=== PATIENT | male | born 1960 | race Caucasian/White ===

== ENCOUNTER 2017-09-13 03:13 | Inpatient (IN) | payer SELFPAY ==
[2017-09-13] VITALS (9 sets, daily range): BP systolic 136–223; BP diastolic 85–114; PULSE 58–86; RESP 16–18; TEMP 97.6–97.7; O2SAT 96–99
[~2017-09-13] VITALS: Ht 180.3 cm; Wt 88.2 kg
[~2017-09-13 03:13] MED LIST: ASPI81TA82 PO; CORE6.25 PO; LIPI80TA16 PO; LISI-360 PO; PLAV75TA PO
[2017-09-13] MEDS ORDERED: REQU5TAB PO (03:23)
[2017-09-13] MEDS ORDERED: LISI10TA3 PO (03:23)
[2017-09-13] MEDS ORDERED: KETOROLAC TROMETHAMINE 30 MG/ML (IVP) VIAL IV PUSH ONE (03:30)
[2017-09-13] MEDS ORDERED: SODIUM CHLORIDE 0.9% FLUSH 10 ML FLUSH IVF PRN (03:30)
[2017-09-13] MEDS ORDERED: CYCLOBENZAPRINE HCL 10 MG TAB PO ONE (03:30)
[2017-09-13 03:40] LABS: AUTOMATED NEUTROPHIL # 5.6 TH/MM3 (1.8-7.7); BASOPHIL # 0.1 TH/MM3 (0-0.2); BASOPHIL % 1.2 % (0.0-2.0); EOSINOPHIL # 0.3 TH/MM3 (0-0.4); EOSINOPHIL % 2.4 % (0.0-4.0); HEMATOCRIT 42.3 % (39.0-51.0); HEMOGLOBIN 14.7 GM/DL (13.0-17.0); LYMPHOCYTE # 4.3 TH/MM3 (1.0-4.8); MEAN CELL VOLUME 100.1 FL (80.0-100.0); MEAN CORPUSCULAR HEMOGLOBIN 34.7 PG (27.0-34.0); MEAN CORPUSCULAR HGB CONC 34.7 % (32.0-36.0); MEAN PLATELET VOLUME 6.9 FL (7.0-11.0); MONO % 7.6 % (0.0-8.0); MONOCYTE # 0.8 TH/MM3 (0-0.9); NEUT % 49.8 % (16.0-70.0); PLATELET COUNT 280 TH/MM3 (150-450); RED BLOOD COUNT 4.23 MIL/MM3 (4.50-5.90); RED CELL DISTRIBUTION WIDTH 13.3 % (11.6-17.2); WHITE BLOOD COUNT 11.1 TH/MM3 (4.0-11.0)
[2017-09-13 04:00] LABS: ALBUMIN 3.5 GM/DL (3.4-5.0); ALT (GPT) 71 U/L (12-78); AST (GOT) 41 U/L (15-37); BICARBONATE 25.7 MEQ/L (21.0-32.0); BLOOD UREA NITROGEN 9 MG/DL (7-18); CALCIUM 8.7 MG/DL (8.5-10.1); CHLORIDE 102 MEQ/L (98-107); CREATININE 1.01 MG/DL (0.60-1.30); GLOMERULAR FILTRATION RATE 76 ML/MIN (>89); GLUCOSE,RANDOM 115 MG/DL (74-106); MAGNESIUM 2.1 MG/DL (1.5-2.5); SODIUM (NA) 140 MEQ/L (136-145)
[2017-09-13 04:04] LABS: ALKALINE PHOSPHATASE 84 U/L (45-117); TOTAL BILIRUBIN ADULT 0.3 MG/DL (0.2-1.0); TROPONIN I LESS THAN 0.02 NG/ML (0.02-0.05)
[2017-09-13 04:08] LABS: PROTHROMBIN TIME - PATIENT 10.1 SEC (9.8-11.6)
[2017-09-13 04:15] LABS: D-DIMER 0.39 MG/L FEU (0.00-0.50)
--- NOTE | 2017-09-13 04:36 | RADRPT ---
EXAM DATE/TIME: 09/13/2017 04:07 [facility] COMPARISON: CHEST SINGLE AP, August 03, 2013, 0:55. INDICATIONS : Right chest pain. MEDICAL HISTORY : None. SURGICAL HISTORY : None. ENCOUNTER: Initial ACUITY: 1 day PAIN SCORE: 9/10 LOCATION: Bilateral chest FINDINGS: A single view of the chest demonstrates the lungs to be symmetrically aerated without evidence of mas s, infiltrate or effusion. The cardiomediastinal contours are unremarkable. Osseous structures are intact. CONCLUSION: The lungs are clear. Prem Adorno MD on September 13, 2017 at 4:34 Board Certified Radiologist. This report was verified electronically.
[2017-09-13] MEDS ORDERED: traMADol HCL 50 MG TAB PO ONE (05:45)
[2017-09-13] MEDS ORDERED: DIAZEPAM 5 MG TAB PO ONE (06:00)
--- NOTE | 2017-09-13 07:00 | PD ---
HPI . Chest pain Chief Complaint: Chest Pain Time Seen by Provider: 03:16 Travel History International Travel<30 days: No Contact w/Intl Traveler<30days: No Traveled to known affect area: No History of Present Illness HPI 57-year-old male complains of having right-sided chest pain radiating to right arm worse with movement, noted over the past day and 1/2-2 days. Patient also has some worsening with deep breath. Patient notes having lifting his father always over 200 pounds from a seated position repeatedly over the past several days. Patient denies any shortness of breath, fever chills sweats, cough, recent leg pain or swelling, no recent confining travel. PFSH Past Medical History Narrative Medical Past medical history reviewed Blood Disorders: No Cancer: No Cardiovascular Problems: No Chest Pain: Yes Endocrine: No Genitourinary: No Hypertension: Yes Immune Disorder: No Medical other: Yes (RESTLESS LEG SYNDROME) Musculoskeletal: Yes Neurologic: No Psychiatric: No Reproductive: No Respiratory: No Tetanus Vaccination: < 5 Years Influenza Vaccination: No Past Surgical History Abdominal Surgery: Yes (COLOSTOMY AND REVERSAL) Cardiac Surgery: No Coronary Stent: Yes Ear Surgery: No Endocrine Surgery: No Eye Surgery: No Genitourinary Surgery: No Gynecologic Surgery: No Neurologic Surgery: Yes (LUMBAR Sx X3) Oral Surgery: No Thoracic Surgery: No Social History Alcohol Use: Yes (OCC) Tobacco Use: Yes Substance Use: No Allergies-Medications (Allergen,Severity, Reaction): Coded Allergies: No Known Allergies (Verified Allergy, Severe, 09/13/17) Uncoded Allergies: NKA (Allergy, Unknown, 03/04/03) Reported Meds & Prescriptions Reported Meds & Active Scripts Active Reported Requip (Ropinirole) 5 Mg Tab 5 Mg PO HS Lisinopril 10 Mg Tab 10 Mg PO DAILY Narrative Medication Allergies and medications reviewed Review of Systems Except as stated in HPI: all other systems reviewed are Neg General / Constitutional: No: Fever Eyes: No: Visual changes HENT: No: Headaches Cardiovascular: Positive: Chest Pain or Discomfort, No: Palpitations, Irregular Rhythm, Tachycardia, Diaphoresis, Varicosities, Edema, Varicosities, Claudication Respiratory: Positive: Pleuritic Pain, No: Cough, Shortness of Breath, Wheezing , Sneezing, Orthopnea, Hemoptysis, Night Sweats Gastrointestinal: No: Abdominal Pain Genitourinary: No: Dysuria Musculoskeletal: No: Pain Skin: No Rash Neurologic: No: Weakness Psychiatric: No: Depression Endocrine: No: Polydipsia Hematologic/Lymphatic: No: Easy Bruising Physical Exam Narrative GENERAL: Awake and alert oriented 3 no acute distress vital signs afebrile normal stable SKIN: Warm and dry. Color is normal no diaphoresis cyanosis or pallor HEAD: Atraumatic. Normocephalic. EYES: Pupils equal and round. No scleral icterus. No injection or drainage. ENT: No nasal bleeding or discharge. Mucous membranes pink and moist. NECK: Trachea midline. No JVD. Supple nontender full range of motion CARDIOVASCULAR: Regular rate and rhythm. S1-S2 no murmurs rubs gallops RESPIRATORY: No accessory muscle use. Clear to auscultation. Breath sounds equal bilaterally. Chest wall exquisitely tender right anterior pectoralis area as well as anterior aspect of patient's shoulder along long head of biceps which elicits patient's pain GASTROINTESTINAL: Abdomen soft, non-tender, nondistended. Hepatic and splenic margins not palpable. MUSCULOSKELETAL: Extremities without clubbing, cyanosis, or edema. No obvious deformities. Tenderness of long head of biceps tendon on right side as noted above NEUROLOGICAL: Awake and alert. No obvious deficits PSYCHIATRIC: Appropriate mood and affect; insight and judgment normal. Data Data Last Documented VS Vital Signs Date Time Temp Pulse Resp B/P (MAP) Pulse Ox O2 Delivery O2 Flow Rate FiO2 09/13/17 05:00 70 16 162/91 (114) 98 Nasal Cannula 2.00 09/13/17 03:15 97.6 Orders Orders Electrocardiogram (09/13/17 03:16) B-Type Natriuretic Peptide (09/13/17 03:16) Ckmb (Isoenzyme) Profile (09/13/17 03:16) Complete Blood Count With Diff (09/13/17 03:16) Comprehensive Metabolic Panel (09/13/17 03:16) D-Dimer (09/13/17 03:16) Magnesium (Mg) (09/13/17 03:16) Prothrombin Time / Inr (Pt) (09/13/17 03:16) Act Partial Throm Time (Ptt) (09/13/17 03:16) Troponin I (09/13/17 03:16) Chest, Single Ap (09/13/17 03:16) Ecg Monitoring (09/13/17 03:16) Bilateral Bp Monitoring (09/13/17 03:16) Iv Access Insert/Monitor (09/13/17 03:16) Oximetry (09/13/17 03:16) Oxygen Administration (09/13/17 03:16) Sodium Chloride 0.9% Flush (Ns Flush) (09/13/17 03:30) Ketorolac Inj (Toradol Inj) (09/13/17 03:30) Cyclobenzaprine (Flexeril) (09/13/17 03:30) Tramadol (Ultram) (09/13/17 05:45) Troponin I (09/13/17 05:53) Diazepam (Valium) (09/13/17 06:00) Ct Thorax/ Chest W Iv Contrast (09/13/17 ) Westergren Sedimentation Rate (09/13/17 06:40) Nitroglycerin 2% Oint (Nitroglycerin 2% (09/13/17 07:15) Labs Laboratory Tests Test 09/13/17 03:25 09/13/17 06:00 White Blood Count 11.1 TH/MM3 Red Blood Count 4.23 MIL/MM3 Hemoglobin 14.7 GM/DL Hematocrit 42.3 % Mean Corpuscular Volume 100.1 FL Mean Corpuscular Hemoglobin 34.7 PG Mean Corpuscular Hemoglobin Concent 34.7 % Red Cell Distribution Width 13.3 % Platelet Count 280 TH/MM3 Mean Platelet Volume 6.9 FL Neutrophils (%) (Auto) 49.8 % Lymphocytes (%) (Auto) 39.0 % Monocytes (%) (Auto) 7.6 % Eosinophils (%) (Auto) 2.4 % Basophils (%) (Auto) 1.2 % Neutrophils # (Auto) 5.6 TH/MM3 Lymphocytes # (Auto) 4.3 TH/MM3 Monocytes # (Auto) 0.8 TH/MM3 Eosinophils # (Auto) 0.3 TH/MM3 Basophils # (Auto) 0.1 TH/MM3 CBC Comment DIFF FINAL Differential Comment Prothrombin Time 10.1 SEC Prothromb Time International Ratio 1.0 RATIO Activated Partial Thromboplast Time 20.6 SEC D-Dimer Quantitative (PE/DVT) 0.39 MG/L FEU Blood Urea Nitrogen 9 MG/DL Creatinine 1.01 MG/DL Random Glucose 115 MG/DL Total Protein 7.0 GM/DL Albumin 3.5 GM/DL Calcium Level 8.7 MG/DL Magnesium Level 2.1 MG/DL Alkaline Phosphatase 84 U/L Aspartate Amino Transf (AST/SGOT) 41 U/L Alanine Aminotransferase (ALT/SGPT) 71 U/L Total Bilirubin 0.3 MG/DL Sodium Level 140 MEQ/L Potassium Level 3.7 MEQ/L Chloride Level 102 MEQ/L Carbon Dioxide Level 25.7 MEQ/L Anion Gap 12 MEQ/L Estimat Glomerular Filtration Rate 76 ML/MIN Total Creatine Kinase 72 U/L Troponin I LESS THAN 0.02 NG/ML 0.05 NG/ML B-Type Natriuretic Peptide 5 PG/ML MDM Medical Decision Making Medical Screen Exam Complete: Yes Emergency Medical Condition: Yes Medical Record Reviewed: Yes Differential Diagnosis Chest pain, chest wall pain, biceps tendinitis, pectoralis spasm Narrative Course EKG normal sinus rhythm at 76 bpm, poor tracing, possible mild ST depressions noted in lead V3 and V4 versus artifact Chest x-ray negative Laboratory examinations including troponin negative. Sedimentation rate pending. Patient notes significant worsening of pain right anterior chest, reproducible by palpation. Denies radiation. Patient screaming in pain despite medications given earlier. CT chest with IV contrast ordered pending performing and result Case signed out to oncoming ED attending Dr. Carbajal pending the above Diagnosis Primary Impression: Chest pain Qualified Codes: R07.1 - Chest pain on breathing Neil Mak MD Sep 13, 2017 07:00
--- NOTE | 2017-09-13 07:09 | PD ---
Data Data Last Documented VS Vital Signs Date Time Temp Pulse Resp B/P (MAP) Pulse Ox O2 Delivery O2 Flow Rate FiO2 09/13/17 11:08 67 16 136/92 (107) 99 Nasal Cannula 2.00 09/13/17 03:15 97.6 Orders Orders Electrocardiogram (09/13/17 03:16) B-Type Natriuretic Peptide (09/13/17 03:16) Ckmb (Isoenzyme) Profile (09/13/17 03:16) Complete Blood Count With Diff (09/13/17 03:16) Comprehensive Metabolic Panel (09/13/17 03:16) D-Dimer (09/13/17 03:16) Magnesium (Mg) (09/13/17 03:16) Prothrombin Time / Inr (Pt) (09/13/17 03:16) Act Partial Throm Time (Ptt) (09/13/17 03:16) Troponin I (09/13/17 03:16) Chest, Single Ap (09/13/17 03:16) Ecg Monitoring (09/13/17 03:16) Bilateral Bp Monitoring (09/13/17 03:16) Iv Access Insert/Monitor (09/13/17 03:16) Oximetry (09/13/17 03:16) Oxygen Administration (09/13/17 03:16) Sodium Chloride 0.9% Flush (Ns Flush) (09/13/17 03:30) Ketorolac Inj (Toradol Inj) (09/13/17 03:30) Cyclobenzaprine (Flexeril) (09/13/17 03:30) Tramadol (Ultram) (09/13/17 05:45) Troponin I (09/13/17 05:53) Diazepam (Valium) (09/13/17 06:00) Ct Thorax/ Chest W Iv Contrast (09/13/17 ) Westergren Sedimentation Rate (09/13/17 06:40) Nitroglycerin 2% Oint (Nitroglycerin 2% (09/13/17 07:15) Hydromorphone Pf Inj (Dilaudid Pf Inj) (09/13/17 07:45) Iohexol 350 Inj (Omnipaque 350 Inj) (09/13/17 08:22) Troponin I (09/13/17 09:06) Heparin Inj (Heparin Inj) (09/13/17 10:15) Heparin Inj (Heparin Inj) (09/13/17 16:15) Heparin Inj (Heparin Inj) (09/13/17 16:15) Heparin-D5w 25,000 U/250 Ml (Heparin-D5w (09/13/17 10:30) Aspirin Chew (Aspirin Chew) (09/13/17 10:15) Consult Cardiology (09/13/17 ) Electrocardiogram (09/13/17 09:48) (Hub Use Only)Inp Phy Cons/Ref (09/13/17 ) Admit Order (Ed Use Only) (09/13/17 ) Labs Laboratory Tests Test 09/13/17 03:25 09/13/17 06:00 09/13/17 09:10 White Blood Count 11.1 TH/MM3 Red Blood Count 4.23 MIL/MM3 Hemoglobin 14.7 GM/DL Hematocrit 42.3 % Mean Corpuscular Volume 100.1 FL Mean Corpuscular Hemoglobin 34.7 PG Mean Corpuscular Hemoglobin Concent 34.7 % Red Cell Distribution Width 13.3 % Platelet Count 280 TH/MM3 Mean Platelet Volume 6.9 FL Neutrophils (%) (Auto) 49.8 % Lymphocytes (%) (Auto) 39.0 % Monocytes (%) (Auto) 7.6 % Eosinophils (%) (Auto) 2.4 % Basophils (%) (Auto) 1.2 % Neutrophils # (Auto) 5.6 TH/MM3 Lymphocytes # (Auto) 4.3 TH/MM3 Monocytes # (Auto) 0.8 TH/MM3 Eosinophils # (Auto) 0.3 TH/MM3 Basophils # (Auto) 0.1 TH/MM3 CBC Comment DIFF FINAL Differential Comment Erythrocyte Sedimentation Rate 7 mm/hr Prothrombin Time 10.1 SEC Prothromb Time International Ratio 1.0 RATIO Activated Partial Thromboplast Time 20.6 SEC D-Dimer Quantitative (PE/DVT) 0.39 MG/L FEU Blood Urea Nitrogen 9 MG/DL Creatinine 1.01 MG/DL Random Glucose 115 MG/DL Total Protein 7.0 GM/DL Albumin 3.5 GM/DL Calcium Level 8.7 MG/DL Magnesium Level 2.1 MG/DL Alkaline Phosphatase 84 U/L Aspartate Amino Transf (AST/SGOT) 41 U/L Alanine Aminotransferase (ALT/SGPT) 71 U/L Total Bilirubin 0.3 MG/DL Sodium Level 140 MEQ/L Potassium Level 3.7 MEQ/L Chloride Level 102 MEQ/L Carbon Dioxide Level 25.7 MEQ/L Anion Gap 12 MEQ/L Estimat Glomerular Filtration Rate 76 ML/MIN Total Creatine Kinase 72 U/L Troponin I LESS THAN 0.02 NG/ML 0.05 NG/ML 0.95 NG/ML B-Type Natriuretic Peptide 5 PG/ML MDM Supervised Visit with ROBSON: No Narrative Course Patient CARE assume from Dr. Dwyer at 0700, this is a patient who presents with colicky right sided chest pain radiating down his right arm. He is a smoker high blood pressure and high cholesterol. He called EMS last night because he thought he was having a heart attack. He received Toradol and Valium prior to the start of my shift, nitroglycerin as well, notably hypertensive but equal in both arms and leg, 217/114 the left upper extremity 223/105 in the right upper extremity 219/102 in the right lower extremity 218/111 the left lower extremity. My exam the patient still looks very uncomfortable, a milligram of Dilaudid was ordered, he is more comfortable after that, we are waiting the results of his CTA aorta to rule out dissection. Disposition to follow. Patient's CT of the chest negative for dissection, he is much more comfortable after Dilaudid. Patient with fairly atypical symptoms including right-sided chest pain radiating down his right arm however his troponin is trended up to 0.95 in the emergency department diagnostic for NSTEMI. Patient low risk for anticoagulation, will be heparinized, has Nitropaste on oxygen and has been given aspirin. Patient discussed with Dr. Barnard who agrees perhaps admission. Awaiting perhaps to call back and will discuss with Dr. Garcia Diagnosis Primary Impression: NSTEMI (non-ST elevated myocardial infarction) Admitting Information Admitting Physician Requests: Admit Condition: Stable Peterson Carbajal MD Sep 13, 2017 07:09
[2017-09-13] MEDS ORDERED: NITROGLYCERIN 2% OINT 1 GM PACKET TOPICAL ONE (07:15)
[2017-09-13] MEDS ORDERED: HYDROmorphone HCL PF 2 MG/ML VIAL IV PUSH ONE (07:45)
[2017-09-13] MEDS ORDERED: IOHEXOL 350 MG/ML 10 ML VIAL (for RAD DIAG) IVCONTRAST ONE (08:22)
--- NOTE | 2017-09-13 09:03 | RADRPT ---
EXAM DATE/TIME: 09/13/2017 08:18 [facility] COMPARISON: No previous studies available for comparison. INDICATIONS : Right anterior chest pain IV CONTRAST: 65 cc Omnipaque 350 (iohexol) IV RADIATION DOSE: 13.89 CTDIvol (mGy) MEDICAL HISTORY : Hypertension. SURGICAL HISTORY : Lumbar fusion ENCOUNTER: Initial ACUITY: 1 day PAIN SCALE: 3/10 LOCATION: Right anterior Chest TECHNIQUE: Volumetric scanning of the chest was performed. Using automated exposure control and adjustment of t he mA and/or kV according to patient size, radiation dose was kept as low as reasonably achievable to obtain optimal diagnostic quality images. DICOM format image data is available electronically for review and comparison. Follow-up recommendations for detected pulmonary nodules are based at a minimum on nodule size and pa tient risk factors according to Fleischner Society Guidelines. FINDINGS: Mild to moderate emphysematous changes in both lungs worse in the apices and minimal pleural thickeni ng along the left. There is no axillary adenopathy. There is no mediastinal adenopathy. There is mild dilatation of th e ascending aorta to 3.6 hemorrhage. Descending aorta measures 2.5 cm. There is no dissection. Mod erate LAD calcifications are noted. There is no pericardial effusion Moderate fatty replacement to the liver. CONCLUSION: No dissection. Moderate coronary calcifications without pericardial effusion Moderate fatty replacement in the liver Joe Pedro MD FACR on September 13, 2017 at 8:59 Board Certified Radiologist. This report was verified electronically.
[2017-09-13] MEDS ORDERED: HEPARIN SODIUM - IV 10,000 UNITS/10 ML VIAL IV ONE ×2 (10:15→16:00)
[2017-09-13] MEDS ORDERED: ASPIRIN 81 MG CHEW TAB CHEW ONE (10:15)
[2017-09-13] MEDS ORDERED: HEPARIN-D5W 25,000 U/250 ML 250 ML IV PRN (10:30)
[2017-09-13] MEDS ORDERED: ACETAMINOPHEN 500 MG CPLT PO PRN (12:15)
[2017-09-13] MEDS ORDERED: SODIUM CHLORIDE 0.9% FLUSH 10 ML FLUSH IV FLUSH PRN (12:15)
[2017-09-13] MEDS ORDERED: NITROGLYCERIN 0.4 MG SL 25 TABS/BTL SL PRN (12:15)
--- NOTE | 2017-09-13 12:52 | HHI.HP ---
[facility] Service [facility] Primary Care Physician Unknown Admission Diagnosis NSTEMI Diagnoses: (1) NSTEMI (non-ST elevated myocardial infarction) Chief Complaint: Chest pain Travel History International Travel<30 Days: No Contact w/Intl Traveler <30 Da: No Traveled to Known Affected Are: No History of Present Illness 57-year-old man with a history of hypertension, tobacco abuse presented to the ED for evaluation of acute onset of substernal chest pain rated 3/10 in intensity which workup patient around 2 AM and radiated to his right arm. Patient reported numbness to his right arm however denies any diaphoresis, heart palpitation or dizziness. States, he took 2 baby aspirin. On initial presentation, cardiac enzyme was unremarkable however the third set was critically elevated. CT chest ruled out dissection. Patient denies any GI bleed and has no other symptoms. Review of Systems Except as stated in HPI: all other systems reviewed are Neg Past Family Social History Past Medical History Hypertension: Yes Medical other: Yes (RESTLESS LEG SYNDROME) Past Surgical History Abdominal Surgery: Yes (COLOSTOMY AND REVERSAL) Coronary Stent: Yes Neurologic Surgery: Yes (LUMBAR Sx X3) Knees surgery Reported Medications Requip (Ropinirole) 5 Mg Tab 5 Mg PO HS Lisinopril 10 Mg Tab 10 Mg PO DAILY Allergies: Coded Allergies: No Known Allergies (Verified Allergy, Severe, 09/13/17) Uncoded Allergies: NKA (Allergy, Unknown, 03/04/03) Family History Family history positive for heart disease Social History Alcohol Use: Yes (OCC) Tobacco Use: Yes Substance Use: No Physical Exam Vital Signs Vital Signs Date Time Temp Pulse Resp B/P (MAP) Pulse Ox O2 Delivery O2 Flow Rate FiO2 09/13/17 11:08 67 16 136/92 (107) 99 Nasal Cannula 2.00 09/13/17 08:15 84 16 170/85 (113) 99 Nasal Cannula 2.00 09/13/17 07:15 86 16 217/114 (148) 99 Nasal Cannula 2.00 223/105 (144) 219/102 (141) 218/111 (146) 09/13/17 05:00 70 16 162/91 (114) 98 Nasal Cannula 2.00 09/13/17 03:18 100 Nasal Cannula 2.00 09/13/17 03:15 97.6 70 18 136/90 (105) 98 Physical Exam GENERAL: This is a well-nourished, well-developed patient, in no apparent distress. SKIN: No rashes, ecchymoses or lesions. Cool and dry. HEAD: Atraumatic. Normocephalic. No temporal or scalp tenderness. EYES: Pupils equal round and reactive. Extraocular motions intact. No scleral icterus. No injection or drainage. ENT: Nose without bleeding, purulent drainage or septal hematoma. Throat without erythema, tonsillar hypertrophy or exudate. Uvula midline. Airway patent. NECK: Trachea midline. No JVD or lymphadenopathy. Supple, nontender, no meningeal signs. CARDIOVASCULAR: Regular rate and rhythm without murmurs, gallops, or rubs. RESPIRATORY: Clear to auscultation. Breath sounds equal bilaterally. No wheezes , rales, or rhonchi. GASTROINTESTINAL: Abdomen soft, non-tender, nondistended. No hepato-splenomegaly , or palpable masses. No guarding. MUSCULOSKELETAL: Extremities without clubbing, cyanosis, or edema. No joint tenderness, effusion, or edema noted. No calf tenderness. Negative Homans sign bilaterally. NEUROLOGICAL: Awake and alert. Cranial nerves II through XII intact. Motor and sensory grossly within normal limits. Five out of 5 muscle strength in all muscle groups. Normal speech. Laboratory Laboratory Tests Test 09/13/17 03:25 09/13/17 06:00 09/13/17 09:10 White Blood Count 11.1 Red Blood Count 4.23 Hemoglobin 14.7 Hematocrit 42.3 Mean Corpuscular Volume 100.1 Mean Corpuscular Hemoglobin 34.7 Mean Corpuscular Hemoglobin Concent 34.7 Red Cell Distribution Width 13.3 Platelet Count 280 Mean Platelet Volume 6.9 Neutrophils (%) (Auto) 49.8 Lymphocytes (%) (Auto) 39.0 Monocytes (%) (Auto) 7.6 Eosinophils (%) (Auto) 2.4 Basophils (%) (Auto) 1.2 Neutrophils # (Auto) 5.6 Lymphocytes # (Auto) 4.3 Monocytes # (Auto) 0.8 Eosinophils # (Auto) 0.3 Basophils # (Auto) 0.1 CBC Comment DIFF FINAL Differential Comment Erythrocyte Sedimentation Rate 7 Prothrombin Time 10.1 Prothromb Time International Ratio 1.0 Activated Partial Thromboplast Time 20.6 D-Dimer Quantitative (PE/DVT) 0.39 Blood Urea Nitrogen 9 Creatinine 1.01 Random Glucose 115 Total Protein 7.0 Albumin 3.5 Calcium Level 8.7 Magnesium Level 2.1 Alkaline Phosphatase 84 Aspartate Amino Transf (AST/SGOT) 41 Alanine Aminotransferase (ALT/SGPT) 71 Total Bilirubin 0.3 Sodium Level 140 Potassium Level 3.7 Chloride Level 102 Carbon Dioxide Level 25.7 Anion Gap 12 Estimat Glomerular Filtration Rate 76 Total Creatine Kinase 72 Troponin I LESS THAN 0.02 0.05 0.95 B-Type Natriuretic Peptide 5 Result Diagram: 09/13/17 0325 09/13/17 0325 Imaging Last Impressions Chest X-Ray 09/13/17 0316 Signed Impressions: Service Date/Time: Wednesday, September 13, 2017 04:07 - CONCLUSION: The lungs are clear. Prem Adorno MD Chest CT 09/13/17 0000 Signed Impressions: Service Date/Time: Wednesday, September 13, 2017 08:18 - CONCLUSION: No dissection. Moderate coronary calcifications without pericardial effusion Moderate fatty replacement in the liver Joe Pedro MD FACR Septic Shock Reassessment Septic shock perfusion: reassessment completed Caprini VTE Risk Assessment Caprini VTE Risk Assessment: No/Low Risk (score <= 1) Caprini Risk Assessment Model Point Value = 1 Point Value = 2 Point Value = 3 Point Value = 5 Age 41-60 Minor surgery BMI > 25 kg/m2 Swollen legs Varicose veins or History of unexplained or recurrent spontaneous Oral contraceptives or hormone replacement Sepsis (< 1 month) Serious lung disease, including pneumonia (< 1 month) Abnormal pulmonary function Acute myocardial infarction Congestive heart failure (< 1 month) History of inflammatory bowel disease Medical patient at bed rest Age 61-74 Arthroscopic surgery Major open surgery (> 45 min) Laparoscopic surgery (> 45 min) Malignancy Confined to bed (> 72 hours) Immobilizing plaster cast Central venous access Age >= 75 History of VTE Family history of VTE Factor V Leiden Prothrombin [id number] Lupus anticoagulant Anticardiolipin antibodies Elevated serum homocysteine Heparin-induced thrombocytopenia Other congenital or acquired thrombophilia Stroke (< 1 month) Elective arthroplasty Hip, pelvis, or leg fracture Acute spinal cord injury (< 1 month) Prophylaxis Regimen Total Risk Factor Score Risk Level Prophylaxis Regimen 0-1 Low Early ambulation 2 Moderate Order ONE of the following: *Sequential Compression Device (SCD) *Heparin 5000 units SQ BID 3-4 Higher Order ONE of the following medications: *Heparin 5000 units SQ TID *Enoxaparin/Lovenox 40 mg SQ daily (WT < 150 kg, CrCl > 30 mL/min) *Enoxaparin/Lovenox 30 mg SQ daily (WT < 150 kg, CrCl > 10-29 mL/min) *Enoxaparin/Lovenox 30 mg SQ BID (WT < 150 kg, CrCl > 30 mL/min) AND/OR *Sequential Compression Device (SCD) 5 or more Highest Order ONE of the following medications: *Heparin 5000 units SQ TID (Preferred with Epidurals) *Enoxaparin/Lovenox 40 mg SQ daily (WT < 150 kg, CrCl > 30 mL/min) *Enoxaparin/Lovenox 30 mg SQ daily (WT < 150 kg, CrCl > 10-29 mL/min) *Enoxaparin/Lovenox 30 mg SQ BID (WT < 150 kg, CrCl > 30 mL/min) AND *Sequential Compression Device (SCD) Assessment and Plan Problem List: (1) NSTEMI (non-ST elevated myocardial infarction) ICD Code: I21.4 - Non-ST elevation (NSTEMI) myocardial infarction Status: Acute Assessment and Plan 57-year-old man with Non-ST elevation [place] CT chest noted and reviewed by me without any evidence of dissection Cardiology consultation pending for evaluation for possible left heart catheterization Continue heparin drip, aspirin, beta antnoio Check lipid profile and treat accordingly 2-D echo pending Hypertension Beta antonio Tobacco abuse Tobacco counseling cessation provided Nicotine patch DVT prophylaxis: Heparin Code Status Full code Discussed Condition With Patient, ED physician Physician Certification 2 Midnight Certification Type: Admission for Inpatient Services Order for Inpatient Services The services are ordered in accordance with Medicare regulations or non- Medicare payer requirements, as applicable. In the case of services not specified as inpatient-only, they are appropriately provided as inpatient services in accordance with the 2-midnight benchmark. Estimated LOS (days): 2 days is the estimated time the patient will need to remain in the hospital, assuming treatment plan goals are met and no additional complications. Post-Hospital Plan: Not yet determined Forrest Petersen MD Sep 13, 2017 12:52
[2017-09-13] MEDS ORDERED: MIDAZOLAM HCL 5 MG/5 ML VIAL ONE (15:23)
[2017-09-13] MEDS ORDERED: HEPARIN SODIUM - IV 10,000 UNITS/10 ML VIAL ONE (15:24)
[2017-09-13] MEDS ORDERED: NITROGLYCERIN INJ 5 ML ONE (15:24)
[2017-09-13] MEDS ORDERED: MIDAZOLAM HCL 5 MG/5 ML VIAL IV ONE ×3 (15:30→16:00)
[2017-09-13] MEDS ORDERED: NITROGLYCERIN 1000 MCG/5 ML VIAL OTHER ONE (16:00)
--- NOTE | 2017-09-13 16:01 | MB ---
cc: Afua Barnard MD DATE: 09/13/2017 HISTORY OF PRESENT ILLNESS: A 57-year-old white male with a history of hypertension, coronary artery disease and smoking. He presented to the emergency room with moderate substernal chest discomfort radiating to the right arm. He took aspirin. He was found to have elevated cardiac enzymes consistent with non-ST elevation myocardial infarction. He has previous history of cardiac catheterization in 07/2013 for acute inferior myocardial infarction, which showed totally occluded PLV with thrombus, which was treated with thrombectomy and stenting of the posterolateral branch of the right coronary artery. There was no significant disease in the left coronary system. PAST MEDICAL HISTORY: Positive for hypertension, restless leg syndrome, history of colostomy and reversal, lumbar surgery x3. MEDICATIONS: 1. Requip. 2. Lisinopril. ALLERGIES: NONE. SOCIAL HISTORY: The patient continues to smoke. He drinks alcohol occasionally. FAMILY HISTORY: Positive for heart disease. REVIEW OF SYSTEMS: Otherwise PHYSICAL EXAMINATION: VITAL SIGNS: Blood pressure 162/105, pulse 58 and regular. HEENT: Negative, 2+ upstrokes. No bruits. LUNGS: Clear. HEART: Regular with no murmur, gallop or rub. ABDOMEN: Soft. No bruits. EXTREMITIES: Without edema, 2+ distal pulses. NEUROLOGIC: Exam is grossly nonfocal. LABORATORY DATA: EKG was reviewed and showed normal sinus rhythm with normal axis and intervals and diffuse nonspecific ST-T changes. LABORATORY DATA: Hemoglobin 14.7, potassium 3.7, creatinine 1.0. Troponins 0.02, 0.05 and 0.95. AST of 41, ALT of 71. CK of 72. DIAGNOSES: 1. Non-ST elevation myocardial infarction. 2. Coronary artery disease, history of inferior wall myocardial infarction and posterior left ventricular branch of the right coronary artery intervention. 3. Hypertension. 4. Smoking. DISPOSITION: Mr. Adams will undergo cardiac catheterization and coronary intervention if necessary. He understands the risks and benefits, and wishes to proceed. Afua Barnard MD OQ/MAGGIE , 03:32 PM , 04:00 PM [facility]ITALConcepción
[2017-09-13] MEDS ORDERED: HEPARIN SODIUM - IV 10,000 UNITS/10 ML VIAL IV PRN ×2 (16:15)
[2017-09-13] MEDS ORDERED: CANGRELOR 50,000 MCG/250 ML NS IV ONE ×2 (16:37)
--- NOTE | 2017-09-13 16:42 | CATHPROC ---
Glopho HIS Report Study Information Study Number Admission Scheduled Start Study Start [id number] Sep 13 2017 11:28AM 09/13/2017 Sep 13 2017 3:18PM [place] [facility] Service Cardiac Catheterization Admit Source Facility Department Emergency department [facility] - Examination Scorer Physician and Clinical Staff Initial Afua Rob Communication Technician Luba Rodrigues,RN Communication Technician Honorio Prieto,RN Recorder Cole Franz,RT(R) Izabela Pepper,RT(R) TECH2 Procedures Performed Procedure Location (Site) Vessel Name Angiogram LV LV Ventricle Coronary Angiograms LCA Left Coronary Coronary Angiograms RCA Right Coronary Drug Eluting Inflatio CIRC Prox CIRC L Heart Cath PTCA CIRC Prox CIRC Wire insertion Fem Art (right) Femoral Art Equipment Time Biometrics Experimentalist Description Size Mfg Part Number Used/Scraped WIRE, BALANCE MIDDLEWEIGHT [id number] 15:53 [employer] 300CM Used 300CM *[id number] TRANSDUCER, TRUWAVE [id number] 15:28 CHANEY GUTIERREZ * Used W/STOCKCOCK *[id number] *[id number] *[id number] *[id number] 16:24 DAIG/[facility] [employer] ANGIOSEAL, FR6 VIP FR 6 Used *[id number] 15:28 [employer] INDUSTRIES PACK, CCL CUSTOM * Used *[id number] 15:28 [employer] PACER PEN, SKIN DUAL W/ RULER * Used *[id number] 15:20 MEDTRON[employer] AR MOD DXTERITY CATHETER FR 5 [id number] Used BALLOON, 2.25 X 10MM [id number] 16:01 MED[employer] 10MM Used EUPHORA *[id number] BALLOON, 2.5 X 8MM NC [id number] 16:13 [employer] 8MM Used EUPHORA *[id number] PIG ANG 145 DXTERITY 15:20 [employer]IC FR 5 [id number] Used CATHETER [id number] 16:10 [employer] STENT, 2.5 18MM KANWAL 2.5 18MM Used *[id number] 15:53 pluriSelect 30 NEETA INDEFLATOR Used *[id number] 15:56 [employer]iSelect SHEATH, FR6.5 PRELUDE 11CM FR 6.5 038ACT Used *[id number] 15:28 [employer]iSelect WIRE, 3MMJ .035 180CM 180CM Used *[id number] PROBE COVER, STERILE [id number] 15:28 [employer] * Used ULTRASOUND W/ GEL *[id number] 15:28 NAMIC MANIFOLD, 4 PORT * Used *[id number] 15:28 NAMIC TUBING, HIGH PRESSURE 48" 48" Used *[id number] 15:28 NYCOMED OMNIPAQUE, 350 MG, 150ML 150ML [id number] Used [id number] 15:28 [facility] BLANKET,WARM AIR CCL * Used *[id number] 15:28 TERUM[employer] SHEATH, FR5 TERUMO (10CM) FR 5 Used *[id number] WIRE, RUNTHROUGH NS FLOPPY [id number] 15:54 [employer] MEDICAL 180CM Used .014 180CM *[id number] Equipment Model, Serial, Lot Number and Expiration Data Description Model Number Serial Number Lot Number Expiration Date ANGIOSEAL, FR6 VIP [id number] 05-25-2018 AR MOD DXTERITY CATHETER [id number] 08-07-2020 PIG ANG 145 DXTERITY CATHETER [id number] 08-02-2019 STENT, 2.5 18MM KANWAL [id number] 12-09-2018 History: Current Medications Medication Dosage/Unit Route Frequency Last Date/Time Taken ASA History: Allergies Allergy Reaction No Known Allergies NKA History: Risk Factors Family History of Hypertension Dyslipidemia Previous MN Previous Heart Failure Premature CAD Yes No No Yes No Prior Valve Prior PCI Prior PCIDate Prior CABG Surgery No Yes 08/24/2012 No Cerebrovascular Peripheral Artery Chronic Lung On Dialysis Diabetes Disease Disease Disease No No No No No History: Risk Factors Selection Items Current Smoker History: Symptoms/Diagnosis Selection Items Chest pain History: CV Disease Selection Items Known CAD MN History: Stress Tests Stress or Imaging Studies Performed No History: Other Disease Selection Items CAD HTN History: Other Current Smoker Method Packs a Day Years Used Pack Years Yes Cigarettes 1 45 45 Labs Hgb (g/dl) Hct (%) Platelets (thousands) 11.60-17.00 35.00-51.00 150.00-450.00 14.7 42.3 280 Glucose (mg/dl) BUN (mg/dl) Creatinine (mg/dl) BUN:Creatinine (1:x) 74.00-106.00 7.00-18.00 0.50-1.30 10.00-20.00 115 9 1.0 9 Na (meq/l) K (meq/l) 136.00-145.00 3.50-5.10 140 8.7 INR (PTT:PT) 0.90-1.10 1 Troponin I (ng/ml) CPK (u/l) CPK-MB (ng/ML) 0.02-0.05 26.00-308.00 0.50-3.60 0.95 72 Not Drawn Medication Medication Total Dose (Bolus/Oral) Medication Total Dosage/Unit 1% XYLOCAINE 20 mL FENTANYL 50 mcg HEPARIN 6000 units NTG (IC) 400 mcg VERSED 3 mg Medications (Bolus/Oral) Medication Time Given Dosage/Unit Administered By Reason VERSED 09/13/2017 3:30:10 PM 1 mg Ida, Honorio 1 mg VERSED given in lab by Honorio Prieto RN in Left Antecubital via Peripheral IV. FENTANYL 09/13/2017 3:30:18 PM 25 mcg Ida, Honorio 25 mcg FENTANYL given in lab by Honorio Prieto RN in Left Antecubital via Peripheral IV. 1% XYLOCAINE 09/13/2017 3:37:38 PM 20 mL Afua Barnard 20 mL 1% XYLOCAINE given in lab by Afua Barnard in Right Groin via Subcutaneous. VERSED 09/13/2017 3:38:06 PM 1 mg Ida, Honorio 1 mg VERSED given in lab by Honorio Prieto RN in Left Antecubital via Peripheral IV. HEPARIN 09/13/2017 3:54:12 PM 6000 units Luba Rodrigues 6000 units HEPARIN given in lab by Luba Rodrigues, CARMINA via Peripheral IV. Ordered by Afua Barnard. VERSED 09/13/2017 3:58:45 PM 1 mg Luba Rodrigues 1 mg VERSED given in lab by Luba Rodrigues RN via Peripheral IV. Ordered by Afua Barnard. NTG (IC) 09/13/2017 4:05:51 PM 200 mcg Izabela Villareal 200 mcg NTG (IC) given in lab by Izabela Villareal, RT(R) TECH2 via Intra-coronary. Ordered by Afua Barnard. NTG (IC) 09/13/2017 4:12:08 PM 200 mcg Izabela Villareal 200 mcg NTG (IC) given in lab by Izabela Villareal, RT(R) TECH2 via Intra-coronary. Ordered by Afua Barnard. FENTANYL 09/13/2017 4:25:30 PM 25 mcg Honorio Prieto 25 mcg FENTANYL given in lab by Honorio Prieto RN in Left Antecubital via Peripheral IV. Medication (Drip) Medication Time Given Dosage/Unit Concentration/Unit Diluent (ml) Solution IV Solutions 09/13/2017 3:17:53 PM 0 mL (IV) 500 NaCl .9 IV Solutions given in lab by Luba Rodrigues RN in Left Antecubital via Peripheral IV. Pump/Drip Bebeto w = 20 ml/hr using NaCl .9. KENGREAL BOLUS 09/13/2017 4:36:23 PM 13.5 mL 13.5 mL KENGREAL BOLUS given in lab by Luba Rodrigues RN in Left Antecubital via Peripheral IV. Ord ered by Afua Barnard. KENGREAL DRIP 09/13/2017 4:38:38 PM 4 mcg/kg/min 50 mg 250 NaCl .9 4 mcg/kg/min KENGREAL DRIP given in lab by Luba Rodrigues RN in Left Antecubital via Peripheral IV. Pump/Drip Flow = 108 ml/hr using NaCl .9 with a concentration of 50 mg in 250 ml. Ordered by Afua Barnard. Initial Case Assessment Cardiovascular HR Rhythm NIBP Chest Pain 61 Sinus 193/102 0 Edema Present Skin color Skin None Normal Warm Dry Circulatory - Right Pulses Dorsalis Pedis Femoral 2 2 Scale (0,1,2,3,4,d) Circulatory - Left Pulses Dorsalis Pedis Femoral 1 2 Scale (0,1,2,3,4,d) Neurological State Oriented to time-place- Alert Moves all extremities person Respiration - General Respiration Rate SpO2 (%) O2 (lpm) (B/min) 13 98 0 Final Case Assessment Cardiovascular HR Rhythm NIBP Chest Pain 62 Sinus 156/102 0 Edema Present Skin color Skin None Normal Warm Dry Circulatory - Right Pulses Dorsalis Pedis Femoral 1 1 Scale (0,1,2,3,4,d) Circulatory - Left Pulses Dorsalis Pedis Femoral 1 1 Scale (0,1,2,3,4,d) Neurological State Oriented to time-place- Alert Moves all extremities person Respiration - General Respiration Rate SpO2 (%) O2 (lpm) (B/min) 18 100 2 Chronological Log Time Study Chronological Log 15:17:45 Patient arrived via Bed. 15:17:45 Patient Name, D.O.B, / Armband Verified By R.N. 15:17:46 Consent signed by the physician and the patient and verified by the Examination Scorer staff. 15:17:46 Pre-op and post- op instructions given; patient acknowledges understanding of instructions. 15:17:47 Verbal Stimulation=2 Physical Stimulation=2 Airway=2 Respiration=2 TOTAL=8. (0=absent, 1=li mited, 2=present) 15:17:48 Presedation assessment performed by Examination Scorer RN. 15:17:48 Immediate Presedation assesment performed by physician. 15:17:49 Patient has been NPO for More than 6Hrs. 15:17:50 Skin Breakdown- none per patient. 15:17:50 Patient Warmer Placed on the Table. 15:17:51 Layla Prominences Protected 15:17:52 A # 18 IV was noted in the Antecubital (left). Grade = 0 IV Solutions given in lab by Luba Rodrigues, RN in Left Antecubital via Peripheral IV. Pump/Dr ip Flow = 20 ml/hr using 15:17:53 NaCl .9. 15:17:53 History and physical on the chart or being dictated. Assessment: Initial Case, HR=61 BPM, Rhythm=Sinus, WHBH=657/102 mmhg, Chest Pain=0, Edema=None, Color=Normal, Skin = Warm, Dry Right Pulses: Pancho Ped=2, Femoral=2 15:18:19 Left Pulses: Pancho Ped=1, Femoral=2 Neurological: State=Alert, Ox3, REYES Respiration: Resp=13 B/min, SpO2=98 %, O2=0 lpm Vitals capture started with the following parameters, Patient=Adult, Interval=5 min, Initial Pr mmkcgu=219 mmHg, 15:21:22 Deflation Rate=5 mmHg, Cuff placed on Unknown 15:22:09 HR=67 bpm, MZBH=536/102 mmhg, SpO2=98.0 %, Resp=12 B/min, Pain=0, Isamar=10, Haddad=2 15:27:08 HR=70 bpm, DWKE=218/103 mmhg, SpO2=98.0 %, Resp=20 B/min, Pain=0, Isamar=10, Haddad=2 15:28:07 Bilateral groins prepped with 2% chlorhexidine, and draped after a 3 minute waiting time. 15:28:14 MD arrived. 15:30:10 1 mg VERSED given in lab by Honorio Prieto RN in Left Antecubital via Peripheral IV. 15:30:18 25 mcg FENTANYL given in lab by Honorio Prieto RN in Left Antecubital via Peripheral IV. 15:32:03 HR=72 bpm, LXGO=266/105 mmhg, SpO2=98.0 %, Resp=24 B/min, Pain=0, Isamar=10, Haddad=2 15:33:45 Pressure channel 1 zero failed. 15:34:19 Pressure channel 1 zeroed. Time Out. Correct patient, correct procedure, correct physician, power injector loaded, or not loaded with contrast with 15:37:01 surgical team present. Time Out Concurred by MD and individual staff in procedure. 15:37:06 HR=66 bpm, WCQV=846/105 mmhg, SpO2=98.0 %, Resp=12 B/min, Pain=0, Isamar=10, Haddad=2 15:37:34 Case Start 15:37:38 20 mL 1% XYLOCAINE given in lab by Afua Barnard in Right Groin via Subcutaneous. 15:38:06 1 mg VERSED given in lab by Honorio Prieto RN in Left Antecubital via Peripheral IV. 15:38:44 Access site was Right Femoral Artery. 15:39:10 A SHEATH, FR5 TERUMO (10CM) FR 5 was advanced into the Fem Art (right) using the Modified S eldinger technique. 15:40:11 Activated Clotting Time Drawn 15:41:04 A PIG ANG 145 DXTERITY CATHETER FR 5 was advanced over a wire. 15:41:22 A WIRE, 3MMJ .035 180CM 180CM was inserted via Fem Art (right). 15:41:27 Wire removed 15:42:01 HR=64 bpm, EPTE=272/92 mmhg, SpO2=98.0 %, Resp=11 B/min, Pain=0, Isamar=10, Haddad=2 Recorded Pressure: LV, HR=66, Condition=Condition 1 15:42:10 (Left Ventricle) LV 155/6/22 15:42:45 The LV was injected at 10 cc/sec for a total of 30. OMNIPAQUE, 350 MG, 150ML 150ML used. 15:43:02 ACT (Normal Range 90-180) = 120 Recorded Pressure: LV, Ao, HR=65, Condition=Condition 1 15:44:36 (Left Ventricle) LV 150/8/16, (Aorta) Ao 152/77/113 After removing the current catheter a JL 4.0 INFINITI CATHETER FR 5 was advanced over a WIRE, 3 MMJ .035 180CM 15:45:08 180CM. 15:46:07 The LCA was injected and visualized at various angles. OMNIPAQUE, 350 MG, 150ML 150ML used . 15:46:58 HR=65 bpm, WMCO=376/98 mmhg, SpO2=98.0 %, Resp=10 B/min, Pain=0, Isamar=10, Haddad=2 After removing the current catheter a AR MOD DXTERITY CATHETER FR 5 was advanced over a WIRE, 3 MMJ .035 15:47:46 180CM 180CM. 15:49:31 The RCA was injected and visualized at various angles. OMNIPAQUE, 350 MG, 150ML 150ML used . 15:51:58 Catheter was removed 15:52:03 HR=72 bpm, TCIJ=375/88 mmhg, SpO2=98.0 %, Resp=15 B/min, Pain=0, Isamar=10, Haddad=2 A SHEATH, FR6.5 PRELUDE 11CM FR 6.5 was exchanged in the Fem Art (right). This was necessary in order to 15:53:42 accomodate a larger catheter. 15:54:12 6000 units HEPARIN given in lab by Luba Rodrigues, CARMINA via Peripheral IV. Ordered by Afua Monaco. A XBC 3.5 GUIDE CATHETER FR 6 was advanced over a wire. OMNIPAQUE, 350 MG, 150ML 150ML was used for 15:56:10 injections. 15:57:04 HR=67 bpm, GJAH=769/93 mmhg, SpO2=99.0 %, Resp=8 B/min, Pain=0, Isamar=10, Haddad=2 15:58:45 1 mg VERSED given in lab by Luba Rodrigues, CARMINA via Peripheral IV. Ordered by Kady Barnard. 15:59:00 A WIRE, RUNTHROUGH NS FLOPPY .014 180CM 180CM was inserted via Fem Art (right). 15:59:58 Activated Clotting Time Drawn A BALLOON, 2.25 X 10MM EUPHORA 10MM was inserted over WIRE, RUNTHROUGH NS FLOPPY .014 180CM 180 CM 16:01:45 via the CIRC Prox. 16:02:07 HR=70 bpm, XJFL=314/85 mmhg, SpO2=99.0 %, Resp=15 B/min, Pain=0, Isamar=10, Haddad=2 A BALLOON, 2.25 X 10MM EUPHORA 10MM over a WIRE, RUNTHROUGH NS FLOPPY .014 180CM 180CM in the C IRC 16:03:26 Prox was inflated using a 30 NEETA INDEFLATOR at 5 neeta for 30 sec. A BALLOON, 2.25 X 10MM EUPHORA 10MM over a WIRE, RUNTHROUGH NS FLOPPY .014 180CM 180CM in the C IRC 16:04:42 Prox was inflated using a 30 NEETA INDEFLATOR at 14 neeta for 40 sec. 16:05:08 ACT (Normal Range 90-180) = 259 16:05:21 Balloon Removed. 16:05:51 200 mcg NTG (IC) given in lab by Izabela Villareal, RT(R) TECH2 via Intra-coronary. Ordered b Afua Llamas. 16:07:04 HR=70 bpm, HRZV=406/83 mmhg, HzE8=819.0 %, Resp=11 B/min, Pain=0, Isamar=10, Haddad=2 A STENT, 2.5 18MM KANWAL 2.5 18MM was advanced through a XBC 3.5 GUIDE CATHETER FR 6 over a WIRE, 16:09:37 RUNTHROUGH NS FLOPPY .014 180CM 180CM. A STENT, 2.5 18MM KANWAL 2.5 18MM was deployed using a 30 NEETA INDEFLATOR at 10 atmospheres for 55 seconds in 16:10:20 the CIRC Prox. 16:11:29 Delivery device removed 16:12:08 200 mcg NTG (IC) given in lab by Izabela Villareal RT(R) BEN via Intra-coronary. Ordered b Afua Llamas. 16:13:25 HR=76 bpm, GIKR=627/78 mmhg, SpO2=97.0 %, Resp=23 B/min, Pain=0, Isamar=10, Haddad=2 A BALLOON, 2.5 X 8MM NC EUPHORA 8MM was inserted over WIRE, RUNTHROUGH NS FLOPPY .014 180CM 180 CM via 16:15:33 the CIRC Prox. A BALLOON, 2.5 X 8MM NC EUPHORA 8MM over a WIRE, RUNTHROUGH NS FLOPPY .014 180CM 180CM in the C IRC 16:15:47 Prox was inflated using a 30 NEETA INDEFLATOR at 18 neeta for 58 sec. 16:16:58 HR=66 bpm, BING=299/89 mmhg, SpO2=97.0 %, Resp=12 B/min, Pain=0, Isamar=10, Haddad=2 A BALLOON, 2.5 X 8MM NC EUPHORA 8MM over a WIRE, RUNTHROUGH NS FLOPPY .014 180CM 180CM in the C IRC 16:17:47 Prox was inflated using a 30 NEETA INDEFLATOR at 18 neeta for 40 sec. A BALLOON, 2.5 X 8MM NC EUPHORA 8MM over a WIRE, RUNTHROUGH NS FLOPPY .014 180CM 180CM in the C IRC 16:18:02 Prox was inflated using a 30 NEETA INDEFLATOR at 20 neeta for 12 sec. 16:18:34 Balloon Removed. 16:21:12 The LCA was injected and visualized at various angles. OMNIPAQUE, 350 MG, 150ML 150ML used . 16:22:01 HR=63 bpm, MAOE=709/89 mmhg, SpO2=99.0 %, Resp=9 B/min, Pain=0, Isamar=10, Haddad=2 16:22:06 Catheter was removed 16:23:19 An injection in the Fem Art (right) was made through the SHEATH, FR6.5 PRELUDE 11CM FR 6.5. 16:24:31 ANGIOSEAL, FR6 VIP FR 6 placement in the Fem Art (right) 16:25:30 25 mcg FENTANYL given in lab by Honorio Prieto, RN in Left Antecubital via Peripheral IV. 16:26:04 Case End 16:26:12 No case complications noted. 16:26:13 Sterile dressing applied to site 16:26:15 Cine recording checked. Assessment: Final Case, HR=62 BPM, Rhythm=Sinus, FSEE=792/102 mmhg, Chest Pain=0, Edema=None, Color=Normal, Skin = Warm, Dry Right Pulses: Pancho Ped=1, Femoral=1 16:26:21 Left Pulses: Pancho Ped=1, Femoral=1 Neurological: State=Alert, Ox3, REYES Respiration: Resp=18 B/min, TiP1=128 %, O2=2 lpm 16:27:41 HR=59 bpm, GGLK=474/102 mmhg, ToS5=691.0 %, Resp=12 B/min, Pain=0, Isamar=10, Haddad=2 16:28:19 Bedside Report will be given. 16:28:37 Implantable Device card placed in patient's chart. 16:28:41 A Left Heart Cath was performed. 16:32:06 VGGE=328/90 mmhg, SpO2=99.0 %, Pain=0, Isamar=10, Haddad=2 13.5 mL KENGREAL BOLUS given in lab by Luba Rodrigues RN in Left Antecubital via Peripheral IV. Ordered by 16:36:23 Afua Barnard. 16:37:03 OLOJ=008/90 mmhg, SpO2=99.0 %, Pain=0, Isamar=10, Haddad=2 16:37:23 Vitals capture stopped. 16:37:33 [facility]kg[facility]min KENGREAL DRIP given in lab by Luba Rodrigues, CARMINA in Left Antecubital via Periphe ral IV. Pump/Drip 16:38:38 Flow = 108 ml/hr using NaCl .9 with a concentration of 50 mg in 250 ml. Ordered by Vijay Barnard. End Study - Contrast Media Used In Study Contrast Total Opened (mL) Total Used (mL) Total Wasted (mL) Omnipaque 200 160 40 End Study - Maximum Contrast Load Max Contrast Load (mL) 450.0 End Study - Radiation Exposure Fluoro Time (minutes) 6.2 End Study - Patient Disposition Complications Transferred To Interventional Outcome No Telemetry Bed successful
[2017-09-13] MEDS ORDERED: IOHEXOL 350 MG/ML 100 ML BTL (for Cath Lab) OTHER ONE (16:56)
[2017-09-13] MEDS ORDERED: SODIUM CHLOR 0.9% 1000 ML INJ 1,000 ML IV SCH (17:00)
[2017-09-13] MEDS ORDERED: CLOPIDOGREL 300 MG TAB PO ONE (17:00)
--- NOTE | 2017-09-13 17:42 | MR ---
cc: Afua Barnard MD DATE: 09/13/2017 This procedure is urgent. INDICATIONS: Non-ST elevation myocardial infarction, class IV angina, coronary artery disease, history of coronary stenting. PROCEDURES PERFORMED: 1. Retrograde left heart catheterization with left ventriculography and selective coronary angiography. 2. Angioplasty and stenting of the left circumflex artery. 3. Moderate sedation. ACCESS SITE: Right femoral artery. EQUIPMENT USED: A 5-Setswana pigtail catheter, 5-Setswana JL4 and ASTON coronary artery , 2.25 x 10 mm balloon for predilatation, 2.5 x 8 mm Cali drug-eluting stent at 10 atmospheres postdilated with 2.5 x 8 mm noncompliant balloon at 20 atmospheres. MEDICATIONS: Versed IV, fentanyl IV, heparin IV nitroglycerin IC, cangrelor IV. CONTRAST: Omnipaque, 160 mL COMPLICATIONS: None. BLOOD LOSS: Less than 10 mL METHOD OF HEMOSTASIS: Angio-Seal closure. RESULTS HEMODYNAMICS: Heart rate 62 beats per minute, LV end diastolic pressure 18 mmHg, left ventricle 155/18, aorta 155/77/113. LEFT VENTRICULOGRAPHY: Left ventricular ejection fraction 55%. Wall motion: small area of mid inferolateral hypokinesis. No mitral regurgitation. ANGIOGRAPHY: 1. Left main coronary artery is patent. The left anterior descending artery is patent. D1 had 30% proximal stenosis. D2 patent. D3 patent. D4 patent. 2. Left circumflex artery is totally occluded in the proximal portion. OM1 fills by [id number] collaterals. 3. Right coronary artery has 60% stenosis in the proximal portion. 4. PDA has 20% ostial stenosis. 5. PLV has 20% stenosis and patent stent in the mid portion. 6. The stenosis of the left circumflex artery 100%, lesion length 12 mm. Pre-YAA flow 0, post-YAA flow 3, post-stenosis 0. This was a type C lesion. 7. Post-intervention angiography revealed excellent patency of the stented segment, and no evidence of dissection, thrombosis or embolization. DIAGNOSES: 1. Coronary artery disease with total occlusion of the left circumflex artery. 2. Overall preserved left ventricular systolic function. 3. Successful angioplasty and stenting of the left circumflex artery. DISPOSITION: Mr. Adams will be monitored on telemetry after his procedure. We will continue therapy with Plavix for at least 1 year and aspirin indefinitely. I recommend to continue aggressive modification of his cardiac risk factors. He was strongly encouraged to quit smoking. He will follow up with his primary physician after discharge. MD ALFA Pemberton/MAGGIE/ , 04:42 PM , 05:25 PM NICOLETTE
[2017-09-13] MEDS: ACETAMINOPHEN/HYDROcodone 325 MG/7.5 MG TAB PO PRN ×2 (18:32→23:12)
--- NOTE | 2017-09-13 20:04 | EKG ---
Date Performed: 09/13/2017 Time Performed: 09:48:13 PTAGE: 57 years EKG: Sinus rhythm WITH SINUS ARRHYTHMIA NORMAL ECG INTERPRETATION BASED ON A DEFAULT AGE OF 40 YEARS NO PREVIOUS TRACING DOCTOR: Oren Pierce Interpretating Date/Time 09/13/2017 20:03:16
--- NOTE | 2017-09-13 20:28 | EKG ---
Date Performed: 09/13/2017 Time Performed: 03:11:24 PTAGE: 57 years EKG: Sinus rhythm MODERATE ST DEPRESSION ABNORMAL ECG INTERPRETATION BASED ON A DEFAULT AGE OF 40 YEARS PREVIOUS TRACING : 08/04/2013 11.32 Compared to previous tracing SINUS BRADYCARDIA IS NO LONGER PRESENT DOCTOR: Oren Pierce Interpretating Date/Time 09/13/2017 20:26:35
[2017-09-13] MEDS ORDERED: TEMAZEPAM 15 MG CAP PO PRN (21:00)
[2017-09-13] MEDS ORDERED: CARVEDILOL 3.125 MG TAB PO SCH (21:00)
[2017-09-13] MEDS ORDERED: ATORVASTATIN 40 MG TAB PO SCH (21:00)
[2017-09-13 22:11] LABS: AUTOMATED NEUTROPHIL # 5.3 TH/MM3 (1.8-7.7); BASOPHIL # 0.1 TH/MM3 (0-0.2); BASOPHIL % 0.7 % (0.0-2.0); EOSINOPHIL # 0.2 TH/MM3 (0-0.4); HEMATOCRIT 41.3 % (39.0-51.0); HEMOGLOBIN 14.3 GM/DL (13.0-17.0); LYMPH % 24.5 % (9.0-44.0); MEAN CELL VOLUME 100.5 FL (80.0-100.0); MEAN CORPUSCULAR HEMOGLOBIN 34.7 PG (27.0-34.0); MEAN CORPUSCULAR HGB CONC 34.5 % (32.0-36.0); MEAN PLATELET VOLUME 6.8 FL (7.0-11.0); MONO % 8.5 % (0.0-8.0); MONOCYTE # 0.7 TH/MM3 (0-0.9); NEUT % 64.3 % (16.0-70.0); PLATELET COUNT 214 TH/MM3 (150-450); RED BLOOD COUNT 4.11 MIL/MM3 (4.50-5.90); RED CELL DISTRIBUTION WIDTH 13.5 % (11.6-17.2); WHITE BLOOD COUNT 8.2 TH/MM3 (4.0-11.0)
[2017-09-13] MEDS: CARVEDILOL 6.25 MG TAB PO SCH (23:11)
[2017-09-13] MEDS: SODIUM CHLORIDE 0.9% FLUSH 10 ML FLUSH IV FLUSH SCH (23:13)
[2017-09-14] VITALS: BP 153/86; PULSE 73; PULSE 74; RESP 16; O2SAT 98
[2017-09-14 04:06] VITALS: PULSE 61; RESP 16
[2017-09-14 04:49] VITALS: BP 123/80; PULSE 62
[2017-09-14] MEDS: ACETAMINOPHEN/HYDROcodone 325 MG/7.5 MG TAB PO PRN (04:51)
[2017-09-14 07:03] LABS: AUTOMATED NEUTROPHIL # 3.8 TH/MM3 (1.8-7.7); BASOPHIL % 0.7 % (0.0-2.0); EOSINOPHIL # 0.1 TH/MM3 (0-0.4); EOSINOPHIL % 2.1 % (0.0-4.0); HEMOGLOBIN 13.8 GM/DL (13.0-17.0); MEAN CELL VOLUME 102.1 FL (80.0-100.0); MEAN CORPUSCULAR HEMOGLOBIN 35.1 PG (27.0-34.0); MEAN CORPUSCULAR HGB CONC 34.3 % (32.0-36.0); MEAN PLATELET VOLUME 6.8 FL (7.0-11.0); MONO % 10.1 % (0.0-8.0); MONOCYTE # 0.7 TH/MM3 (0-0.9); NEUT % 57.1 % (16.0-70.0); PLATELET COUNT 207 TH/MM3 (150-450); RED BLOOD COUNT 3.92 MIL/MM3 (4.50-5.90); RED CELL DISTRIBUTION WIDTH 13.4 % (11.6-17.2); WHITE BLOOD COUNT 6.7 TH/MM3 (4.0-11.0)
[2017-09-14 07:32] LABS: ALBUMIN 3.1 GM/DL (3.4-5.0); ALKALINE PHOSPHATASE 76 U/L (45-117); ALT (GPT) 74 U/L (12-78); AST (GOT) 196 U/L (15-37); BICARBONATE 24.3 MEQ/L (21.0-32.0); BLOOD UREA NITROGEN 15 MG/DL (7-18); CALCIUM 8.6 MG/DL (8.5-10.1); CHLORIDE 106 MEQ/L (98-107); CHOLESTEROL 205 MG/DL (120-200); CHOLESTEROL/ HDL RATIO 6.15 RATIO; CREATININE 1.04 MG/DL (0.60-1.30); FREE T4 0.92 NG/DL (0.76-1.46); GLOMERULAR FILTRATION RATE 74 ML/MIN (>89); GLUCOSE,RANDOM 101 MG/DL (74-106); HDL CHOLESTEROL 33.3 MG/DL (40.0-60.0); LDL CHOLESTEROL 131 MG/DL (0-99); SODIUM (NA) 139 MEQ/L (136-145); TOTAL BILIRUBIN ADULT 0.3 MG/DL (0.2-1.0); TOTAL PROTEIN 6.3 GM/DL (6.4-8.2); TRIGLYCERIDES 204 MG/DL (42-150)
--- NOTE | 2017-09-14 07:41 | EKG ---
Date Performed: 09/14/2017 Time Performed: 06:05:58 PTAGE: 57 years EKG: Sinus bradycardia Possible septal infarct - age undetermined Abnormal ECG PREVIOUS TRACING : 09/13/2017 22.25 Compared to prior electrocardiogram, Possible septal MA is present this could be due to lead placement and clinical correlation is suggested. DOCTOR: Elver Kim Interpretating Date/Time 09/14/2017 07:40:19
--- NOTE | 2017-09-14 07:46 | EKG ---
Date Performed: 09/13/2017 Time Performed: 22:25:40 PTAGE: 57 years EKG: Sinus rhythm Normal ECG No significant change from prior electrocardiogram. PREVIOUS TRACING : 09/13/2017 09.48 DOCTOR: Elver Kim Interpretating Date/Time 09/14/2017 07:44:21
[2017-09-14 08:00] VITALS: BP 118/74; PULSE 57; RESP 16; TEMP 97.9; O2SAT 96
[2017-09-14] MEDS: SODIUM CHLORIDE 0.9% FLUSH 10 ML FLUSH IV FLUSH SCH (08:05)
[2017-09-14] MEDS: CARVEDILOL 6.25 MG TAB PO SCH (08:05)
[2017-09-14] MEDS ORDERED: PANTOPRAZOLE SOD 40 MG DELAYED RELEASE TAB PO SCH (09:00)
[2017-09-14] MEDS ORDERED: REMOVE OLD PATCH T-DERMAL SCH (09:00)
[2017-09-14] MEDS ORDERED: ASPIRIN 81 MG CHEW TAB PO SCH (09:00)
[2017-09-14] MEDS ORDERED: CLOPIDOGREL 75 MG TAB PO SCH (09:00)
[2017-09-14] MEDS: NICOTINE 21 MG/24 HR PATCH T-DERMAL SCH (09:00)
[2017-09-14] MEDS ORDERED: ASPIRIN EC 81 MG TABEC PO SCH (09:00)
[2017-09-14] MEDS ORDERED: CARV6.25 PO (09:44)
[2017-09-14] MEDS ORDERED: PLAV75TA29 PO (09:44)
[2017-09-14] MEDS ORDERED: ATOR40TA16 PO (09:44)
[2017-09-14] MEDS ORDERED: ASPI81 PO (09:44)
--- NOTE | 2017-09-14 09:46 | HHI.PR ---
Subjective Remarks Follow-up non-ST elevation [place] 09/14/17-patient seen and examined, denies any chest pain or shortness of breath. He is status post ACI with stent placement Objective Vitals Vital Signs Date Time Temp Pulse Resp B/P (MAP) Pulse Ox O2 Delivery O2 Flow Rate FiO2 09/14/17 05:56 16 09/14/17 04:49 62 123/80 (94) 09/14/17 04:06 61 09/14/17 04:06 61 16 09/14/17 00:00 73 16 153/86 (108) 98 09/14/17 00:00 74 09/13/17 22:33 68 09/13/17 20:00 97.7 75 16 138/93 (108) 96 09/13/17 16:46 99 Room Air 09/13/17 15:05 56 176/106 (129) 97 09/13/17 13:00 58 16 162/105 (124) 99 Nasal Cannula 2.00 09/13/17 11:08 67 16 136/92 (107) 99 Nasal Cannula 2.00 I/O 09/13/17 09/13/17 09/13/17 09/14/17 09/14/17 09/14/17 07:00 15:00 23:00 07:00 15:00 23:00 Intake Total 240 ml Output Total 400 ml Balance -160 ml Intake Oral 240 ml Output Urine Total 400 ml Result Diagram: 09/14/17 0557 09/14/17 0557 Imaging Last Impressions Chest X-Ray 09/13/17 0316 Signed Impressions: Service Date/Time: Wednesday, September 13, 2017 04:07 - CONCLUSION: The lungs are clear. Prem Adorno MD Chest CT 09/13/17 0000 Signed Impressions: Service Date/Time: Wednesday, September 13, 2017 08:18 - CONCLUSION: No dissection. Moderate coronary calcifications without pericardial effusion Moderate fatty replacement in the liver Joe Pedro MD FACR Objective Remarks GENERAL: NAD SKIN: Warm and dry. HEAD: Normocephalic. EYES: No scleral icterus. No injection or drainage. NECK: Supple, trachea midline. No JVD or lymphadenopathy. CARDIOVASCULAR: Regular rate and rhythm without murmurs, gallops, or rubs. RESPIRATORY: Breath sounds equal bilaterally. No accessory muscle use. GASTROINTESTINAL: Abdomen soft, non-tender, nondistended. MUSCULOSKELETAL: No cyanosis, or edema. BACK: Nontender without obvious deformity. No CVA tenderness. Procedures PCI with stent placement 09/13/17 A/P Problem List: (1) NSTEMI (non-ST elevated myocardial infarction) ICD Code: I21.4 - Non-ST elevation (NSTEMI) myocardial infarction Status: Acute Assessment and Plan 57-year-old man with Non-ST elevation TX CT chest without any evidence of dissection s/p angioplasty and stenting of the left circumflex artery 09/13/17 by cardiology Continue Plavix, aspirin, beta antonio, statin Tobacco counseling cessation provided 2-D echo pending Hypertension Beta antonio Tobacco abuse Tobacco counseling cessation provided Nicotine patch DVT prophylaxis: Heparin Discharge Planning Discharge patient to home Condition on discharge: Improved Regular Diet as tolerated Ad Michelle activity Rx written:see EMR Follow-up with primary care physician in one week Cardiology in 1-2 weeks Forrest Petersen MD Sep 14, 2017 09:45
[2017-09-14 12:00] VITALS: PULSE 63
--- NOTE | 2017-09-14 13:21 | PD.CARD.PN ---
Subjective Subjective Remarks No angina or SOB, feels well Objective Medications Current Medications Medications (Trade) Dose Ordered Sig/Katia Route Start Time Stop Time Status Last Admin (NS Flush) 2 ml BID IV FLUSH 09/13/17 21:00 09/14/17 08:05 (NS Flush) 2 ml UNSCH PRN IV FLUSH 09/13/17 12:15 (Nitrostat Sl) 0.4 mg Q5M PRN SL 09/13/17 12:15 (Tylenol) 500 mg Q4H PRN PO 09/13/17 12:15 ([place] 7.5-325 Mg) 1 tab Q4H PRN PO 09/13/17 12:15 09/14/17 04:51 (Protonix) 40 mg DAILY PO 09/14/17 09:00 09/14/17 08:05 (Restoril) 15 mg HS PRN PO 09/13/17 21:00 09/13/17 23:11 (Habitrol 21 Mg Patch.24 Hr) 1 patch DAILY T-DERMAL 09/14/17 09:00 09/14/17 09:00 Miscellaneous Information 1 DAILY T-DERMAL 09/14/17 09:00 (Aspirin Chew) 81 mg DAILY PO 09/14/17 09:00 09/14/17 08:05 (Plavix) 75 mg DAILY PO 09/14/17 09:00 09/14/17 08:05 (Coreg) 6.25 mg BID PO 09/13/17 21:00 09/14/17 08:05 (Lipitor) 40 mg HS PO 09/13/17 21:00 09/13/17 23:12 Vital Signs / I&O Vital Signs Date Time Temp Pulse Resp B/P (MAP) Pulse Ox O2 Delivery O2 Flow Rate FiO2 09/14/17 12:00 63 09/14/17 08:00 97.9 57 16 118/74 (89) 96 09/14/17 08:00 57 09/14/17 05:56 16 09/14/17 04:49 62 123/80 (94) 09/14/17 04:06 61 09/14/17 04:06 61 16 09/14/17 00:00 73 16 153/86 (108) 98 09/14/17 00:00 74 09/13/17 22:33 68 09/13/17 20:00 97.7 75 16 138/93 (108) 96 09/13/17 16:46 99 Room Air 09/13/17 15:05 56 176/106 (129) 97 I/O 09/13/17 09/13/17 09/13/17 09/14/17 09/14/17 09/14/17 07:00 15:00 23:00 07:00 15:00 23:00 Intake Total 240 ml Output Total 400 ml Balance -160 ml Intake Oral 240 ml Output Urine Total 400 ml Physical Exam GENERAL: In NAD. SKIN: Warm and dry. HEAD: Normocephalic. EYES: No scleral icterus. No injection or drainage. NECK: Supple, trachea midline. No JVD or lymphadenopathy. CARDIOVASCULAR: Regular rate and rhythm without murmurs, gallops, or rubs. RESPIRATORY: Breath sounds equal bilaterally. No accessory muscle use. GASTROINTESTINAL: Abdomen soft, non-tender, nondistended. MUSCULOSKELETAL: No cyanosis, or edema. Groin stable. Laboratory Laboratory Tests Test 09/13/17 21:45 09/14/17 05:57 White Blood Count 8.2 TH/MM3 6.7 TH/MM3 Red Blood Count 4.11 MIL/MM3 3.92 MIL/MM3 Hemoglobin 14.3 GM/DL 13.8 GM/DL Hematocrit 41.3 % 40.0 % Mean Corpuscular Volume 100.5 FL 102.1 FL Mean Corpuscular Hemoglobin 34.7 PG 35.1 PG Mean Corpuscular Hemoglobin Concent 34.5 % 34.3 % Red Cell Distribution Width 13.5 % 13.4 % Platelet Count 214 TH/MM3 207 TH/MM3 Mean Platelet Volume 6.8 FL 6.8 FL Neutrophils (%) (Auto) 64.3 % 57.1 % Lymphocytes (%) (Auto) 24.5 % 30.0 % Monocytes (%) (Auto) 8.5 % 10.1 % Eosinophils (%) (Auto) 2.0 % 2.1 % Basophils (%) (Auto) 0.7 % 0.7 % Neutrophils # (Auto) 5.3 TH/MM3 3.8 TH/MM3 Lymphocytes # (Auto) 2.0 TH/MM3 2.0 TH/MM3 Monocytes # (Auto) 0.7 TH/MM3 0.7 TH/MM3 Eosinophils # (Auto) 0.2 TH/MM3 0.1 TH/MM3 Basophils # (Auto) 0.1 TH/MM3 0.0 TH/MM3 CBC Comment DIFF FINAL DIFF FINAL Differential Comment Blood Urea Nitrogen 15 MG/DL Creatinine 1.04 MG/DL Random Glucose 101 MG/DL Total Protein 6.3 GM/DL Albumin 3.1 GM/DL Calcium Level 8.6 MG/DL Alkaline Phosphatase 76 U/L Aspartate Amino Transf (AST/SGOT) 196 U/L Alanine Aminotransferase (ALT/SGPT) 74 U/L Total Bilirubin 0.3 MG/DL Sodium Level 139 MEQ/L Potassium Level 4.2 MEQ/L Chloride Level 106 MEQ/L Carbon Dioxide Level 24.3 MEQ/L Anion Gap 9 MEQ/L Estimat Glomerular Filtration Rate 74 ML/MIN Total Creatine Kinase 1186 U/L Creatine Kinase MB 105.9 NG/ML Creatine Kinase MB % 8.9 % Triglycerides Level 204 MG/DL Cholesterol Level 205 MG/DL LDL Cholesterol 131 MG/DL HDL Cholesterol 33.3 MG/DL Cholesterol/HDL Ratio 6.15 RATIO Free Thyroxine 0.92 NG/DL Thyroid Stimulating Hormone 3rd Gen 4.330 uIU/ML Assessment and Plan Problem List: (1) NSTEMI (non-ST elevated myocardial infarction) ICD Codes: I21.4 - Non-ST elevation (NSTEMI) myocardial infarction Status: Acute (2) CAD (coronary artery disease) ICD Codes: I25.10 - Atherosclerotic heart disease of [place] coronary artery without angina pectoris (3) Stented coronary artery ICD Codes: Z95.5 - Presence of coronary angioplasty implant and graft (4) Smoking ICD Codes: F17.200 - Nicotine dependence, unspecified, uncomplicated Assessment and Plan Cath with 100% cx stenosis. Good PCI result. Continue Plavix for 1 year and ASA indefinitely. Aggressive risk factor modification. Counseled to quit smoking. DC home. F/u with PCP. Afua Barnard MD Sep 14, 2017 13:21
[2017-09-14 16:57] LABS: HEMOGLOBIN A1C 5.6 % (4.3-6.0)
== END 2017-09-14 13:30 | disposition home or self-care (01) | DRG 247 ==
LOC: NEPC 03:13 → NEDA 11:28 → HCIS 20:32
PROVIDERS: ADMIT Hospitalist; ATTEND Hospitalist
PROC: 4A023N7 Measurement of Cardiac Sampling and Pressure, Left Heart, Percutaneous Approach (ICD-10-PCS; 2017-09-13)
PROC: B2111ZZ Fluoroscopy of Multiple Coronary Arteries using Low Osmolar Contrast (ICD-10-PCS; 2017-09-13)
PROC: B2151ZZ Fluoroscopy of Left Heart using Low Osmolar Contrast (ICD-10-PCS; 2017-09-13)
PROC: 027034Z Dilation of Coronary Artery, One Artery with Drug-eluting Intraluminal Device, Percutaneous Approach (ICD-10-PCS; principal; 2017-09-13 15:00)
DX: I21.4 Non-ST elevation (NSTEMI) myocardial infarction (principal); I25.119 Atherosclerotic heart disease of native coronary artery with unspecified angina pectoris; I10 Essential (primary) hypertension; F17.200 Nicotine dependence, unspecified, uncomplicated; G25.81 Restless legs syndrome; E78.00 Pure hypercholesterolemia, unspecified; Z95.5 Presence of coronary angioplasty implant and graft; I25.2 Old myocardial infarction
CPT/HCPCS: 71045; 71260; 80053; 80061; 82550; 82552; 83036; 83735; 83880; 84439; 84443; 84484; 85002; 85025; 85379; 85610; 85652; 85730; 92928; 93005; 93458; 96374; 96375; 99152; 99153; C1725; C1760; C1769; C1874; C1887; C1893; C9460; J1170; J1644; J1885; J2250; J3010; J7050; Q9967

== ENCOUNTER 2017-09-25 14:03 | Emergency (ER) | payer SELFPAY ==
[~2017-09-25] VITALS: Ht 180.3 cm; Wt 86.4 kg
[~2017-09-25 14:03] MED LIST changes: +ASPI81 PO; -ASPI81TA82 PO; +ATOR40TA16 PO; +CARV6.25 PO; -CORE6.25 PO; -LIPI80TA16 PO; -LISI-360 PO; +LISI10TA3 PO; -PLAV75TA PO; +PLAV75TA29 PO; +REQU5TAB PO
[2017-09-25 14:20] VITALS: BP 199/104; PULSE 63; RESP 18; TEMP 98.6; O2SAT 98
[2017-09-25 15:06] VITALS: BP 174/97; PULSE 58; RESP 15; O2SAT 97
[2017-09-25 15:45] LABS: AUTOMATED NEUTROPHIL # 5.7 TH/MM3 (1.8-7.7); BASOPHIL # 0.1 TH/MM3 (0-0.2); BASOPHIL % 1.1 % (0.0-2.0); EOSINOPHIL # 0.2 TH/MM3 (0-0.4); EOSINOPHIL % 1.5 % (0.0-4.0); HEMATOCRIT 43.3 % (39.0-51.0); HEMOGLOBIN 15.3 GM/DL (13.0-17.0); LYMPH % 29.7 % (9.0-44.0); MEAN CELL VOLUME 99.1 FL (80.0-100.0); MEAN CORPUSCULAR HEMOGLOBIN 34.9 PG (27.0-34.0); MEAN CORPUSCULAR HGB CONC 35.2 % (32.0-36.0); MEAN PLATELET VOLUME 6.9 FL (7.0-11.0); MONO % 10.5 % (0.0-8.0); MONOCYTE # 1.1 TH/MM3 (0-0.9); NEUT % 57.2 % (16.0-70.0); PLATELET COUNT 295 TH/MM3 (150-450); RED BLOOD COUNT 4.37 MIL/MM3 (4.50-5.90); RED CELL DISTRIBUTION WIDTH 13.3 % (11.6-17.2)
[2017-09-25 15:53] LABS: PROTHROMBIN TIME - PATIENT 10.4 SEC (9.8-11.6)
--- NOTE | 2017-09-25 15:58 | RADRPT ---
EXAM DATE/TIME: 09/25/2017 15:36 [facility] COMPARISON: No previous studies available for comparison. INDICATIONS : Elavated bloodpressure tingling both arms RADIATION DOSE: 56.35 CTDIvol (mGy) MEDICAL HISTORY : Hypertension. SURGICAL HISTORY : Lumbar ENCOUNTER: Initial ACUITY: 1 day PAIN SCALE: 4/10 LOCATION: cranial TECHNIQUE: Multiple contiguous axial images were obtained of the head. Using automated exposure control and adj ustment of the mA and/or kV according to patient size, radiation dose was kept as low as reasonably a chievable to obtain optimal diagnostic quality images. DICOM format image data is available electro nically for review and comparison. FINDINGS: CEREBRUM: The ventricles are normal for age. No evidence of midline shift, mass lesion, hemorrhage or acute in farction. No extra-axial fluid collections are seen. POSTERIOR FOSSA: The cerebellum and brainstem are intact. The 4th ventricle is midline. The cerebellopontine angle i s unremarkable. EXTRACRANIAL: The visualized portion of the orbits is intact. SKULL: The calvaria is intact. No evidence of skull fracture. CONCLUSION: 1. Negative noncontrast CT brain. Prem Adorno MD on September 25, 2017 at 15:55 Board Certified Radiologist. This report was verified electronically.
[2017-09-25 16:07] LABS: BLOOD UREA NITROGEN 7 MG/DL (7-18); CHLORIDE 99 MEQ/L (98-107); CREATININE 0.87 MG/DL (0.60-1.30); GLOMERULAR FILTRATION RATE 90 ML/MIN (>89); GLUCOSE,RANDOM 94 MG/DL (74-106); MAGNESIUM 2.3 MG/DL (1.5-2.5); SODIUM (NA) 131 MEQ/L (136-145)
[2017-09-25 16:11] LABS: TROPONIN I LESS THAN 0.02 NG/ML (0.02-0.05)
--- NOTE | 2017-09-25 17:09 | PD ---
HPI Chief Complaint: Headache Time Seen by Provider: 16:51 Travel History International Travel<30 days: No Contact w/Intl Traveler<30days: No Traveled to known affect area: No History of Present Illness HPI 57-year-old male presents emergency department for evaluation of bilateral upper extremity numbness and tingling, elevated blood pressure, and headache that started yesterday. Patient says that he started having headaches yesterday that was mild and resolved on its own. Says today his headache returned and started as a 7/10 and is now 4/10 described as dull. Patient does not take any medication for his headache. Patient denies chest pain, shortness of breath, weakness. He decided to come to the emergency department today because his IN presented with right arm numbness and tingling as well and he wanted to be sure that this was not the case. Patient says that he was discharged with a number medications which include carvedilol, Plavix, and atorvastatin. Says he has had a couple episodes of diarrhea and believes this is secondary to the medications that he is taking. Says he smokes 6-7 cigarettes a day and is trying to cut down. PFSH Past Medical History Blood Disorders: No Cancer: No Cardiovascular Problems: No Chest Pain: Yes Endocrine: No Genitourinary: No Hypertension: Yes Immune Disorder: No Musculoskeletal: Yes Neurologic: No Psychiatric: No Reproductive: No Respiratory: No Past Surgical History Abdominal Surgery: Yes (COLOSTOMY AND REVERSAL) Cardiac Surgery: No Coronary Stent: Yes Ear Surgery: No Endocrine Surgery: No Eye Surgery: No Genitourinary Surgery: No Gynecologic Surgery: No Neurologic Surgery: Yes (LUMBAR Sx X3) Oral Surgery: No Thoracic Surgery: No Social History Alcohol Use: Yes (OCC) Tobacco Use: Yes Substance Use: No Allergies-Medications (Allergen,Severity, Reaction): Coded Allergies: No Known Allergies (Verified Allergy, Severe, 09/25/17) Uncoded Allergies: NKA (Allergy, Unknown, 03/04/03) Reported Meds & Prescriptions Reported Meds & Active Scripts Active Tgt Aspirin (Aspirin) 81 Mg Chw 81 Mg PO DAILY Coreg (Carvedilol) 6.25 Mg Tab 6.25 Mg PO BID Atorvastatin (Atorvastatin Calcium) 40 Mg Tab 40 Mg PO HS Plavix (Clopidogrel Bisulfate) 75 Mg Tab 75 Mg PO DAILY Reported Requip (Ropinirole) 5 Mg Tab 5 Mg PO HS Lisinopril 10 Mg Tab 10 Mg PO DAILY Review of Systems Except as stated in HPI: all other systems reviewed are Neg Physical Exam Narrative GENERAL: Well developed, well-nourished in no apparent distress SKIN: Focused skin assessment warm/dry. HEAD: Atraumatic. Normocephalic. EYES: Pupils equal and round. No scleral icterus. No injection or drainage. ENT: No nasal bleeding or discharge. Mucous membranes pink and moist. NECK: Trachea midline. No JVD. CARDIOVASCULAR: Regular rate and rhythm. No murmur appreciated. RESPIRATORY: No accessory muscle use. Clear to auscultation. Breath sounds equal bilaterally. GASTROINTESTINAL: Abdomen soft, non-tender, nondistended. Hepatic and splenic margins not palpable. No CVA tenderness MUSCULOSKELETAL: No obvious deformities. No clubbing. No cyanosis. No edema. NEUROLOGICAL: Awake and alert. No obvious cranial nerve deficits. Motor grossly within normal limits. Normal speech. Neurovascularly intact. rapid alternating movements, [id number], finger to nose within normal limits. PSYCHIATRIC: Appropriate mood and affect; insight and judgment normal. Data Data Last Documented VS Vital Signs Date Time Temp Pulse Resp B/P (MAP) Pulse Ox O2 Delivery O2 Flow Rate FiO2 09/25/17 19:16 09/25/17 18:50 65 18 98 Room Air 09/25/17 14:20 98.6 Orders Orders Electrocardiogram (09/25/17 14:22) Basic Metabolic Panel (Bmp) (09/25/17 14:22) Ckmb (Isoenzyme) Profile (09/25/17 14:22) Complete Blood Count With Diff (09/25/17 14:22) Magnesium (Mg) (09/25/17 14:22) Prothrombin Time / Inr (Pt) (09/25/17 14:22) Act Partial Throm Time (Ptt) (09/25/17 14:22) Troponin I (09/25/17 14:22) Ct Brain W/O Iv Contrast(Rout) (09/25/17 ) Sodium Chlor 0.9% 1000 Ml Inj (Ns 1000 M (09/25/17 17:15) Ketorolac Inj (Toradol Inj) (09/25/17 17:15) Ed Discharge Order (09/25/17 19:07) Labs Laboratory Tests Test 09/25/17 15:12 White Blood Count 10.0 TH/MM3 Red Blood Count 4.37 MIL/MM3 Hemoglobin 15.3 GM/DL Hematocrit 43.3 % Mean Corpuscular Volume 99.1 FL Mean Corpuscular Hemoglobin 34.9 PG Mean Corpuscular Hemoglobin Concent 35.2 % Red Cell Distribution Width 13.3 % Platelet Count 295 TH/MM3 Mean Platelet Volume 6.9 FL Neutrophils (%) (Auto) 57.2 % Lymphocytes (%) (Auto) 29.7 % Monocytes (%) (Auto) 10.5 % Eosinophils (%) (Auto) 1.5 % Basophils (%) (Auto) 1.1 % Neutrophils # (Auto) 5.7 TH/MM3 Lymphocytes # (Auto) 3.0 TH/MM3 Monocytes # (Auto) 1.1 TH/MM3 Eosinophils # (Auto) 0.2 TH/MM3 Basophils # (Auto) 0.1 TH/MM3 CBC Comment DIFF FINAL Differential Comment Prothrombin Time 10.4 SEC Prothromb Time International Ratio 1.0 RATIO Activated Partial Thromboplast Time 25.8 SEC Blood Urea Nitrogen 7 MG/DL Creatinine 0.87 MG/DL Random Glucose 94 MG/DL Calcium Level 9.0 MG/DL Magnesium Level 2.3 MG/DL Sodium Level 131 MEQ/L Potassium Level 3.8 MEQ/L Chloride Level 99 MEQ/L Carbon Dioxide Level 24.0 MEQ/L Anion Gap 8 MEQ/L Estimat Glomerular Filtration Rate 90 ML/MIN Total Creatine Kinase 79 U/L Troponin I LESS THAN 0.02 NG/ML MDM Medical Decision Making Medical Screen Exam Complete: Yes Emergency Medical Condition: Yes Differential Diagnosis Headache, hypertension, CVA, TIA Narrative Course 57-year-old male presents emergency department for evaluation of a headache, high blood pressure, and bilateral upper extremity numbness and tingling that started today. Patient does not member what he was doing at the time of the onset of headache. Initial blood pressure elevated at 199/104, heart rate 63, SaO2 98%. Once patient was in the room, patient's blood pressure 174/97. Physical exam findings unremarkable. Neuro deficits. Labs and imaging studies were ordered. Last Impressions Head CT 09/25/17 0000 Signed Impressions: Service Date/Time: Monday, September 25, 2017 15:36 - CONCLUSION: 1. Negative noncontrast CT brain. Prem Adorno MD CBC & BMP Diagram 09/25/17 15:12 Calcium Level 9.0, Magnesium Level 2.3 Patient given Toradol for his headache. Since patient is driving will avoid Compazine and Benadryl. 1L NS IVF bolus administered as patient may be slightly dehydrated. Advised to continue all his medications as previously prescribed. Advised to follow up with his PCP as discussed. Diagnosis Primary Impression: Headache Additional Impression: Elevated blood pressure reading Referrals: Primary Care Physician Additional Instructions: Follow the primary care physician tomorrow as discussed. Take all medications as prescribed. If her symptoms persist or worsen return to the emergency department. Disposition: 01 DISCHARGE HOME Condition: Stable Renee Tayolr Sep 25, 2017 17:09
[2017-09-25] MEDS ORDERED: KETOROLAC TROMETHAMINE 30 MG/ML (IVP) VIAL IV PUSH ONE (17:15)
[2017-09-25] MEDS ORDERED: SODIUM CHLOR 0.9% 1000 ML INJ 1,000 ML IV ONE (17:15)
[2017-09-25 18:50] VITALS: BP 158/93; PULSE 65; RESP 18; O2SAT 98
--- NOTE | 2017-09-26 16:00 | EKG ---
Date Performed: 09/25/2017 Time Performed: 15:06:09 PTAGE: 57 years EKG: SINUS BRADYCARDIA ABNORMAL ECG PREVIOUS TRACING : 09/14/2017 06.05 R-waves are now present in V1 and V2. Clinical correlation is recommended. DOCTOR: Ethan Delgado Interpretating Date/Time 09/26/2017 15:59:39
== END 2017-09-25 19:17 | disposition home or self-care (01) ==
LOC: NEPC 14:03
DX: R51 Headache (principal); I10 Essential (primary) hypertension; F17.210 Nicotine dependence, cigarettes, uncomplicated; R00.1 Bradycardia, unspecified; Z79.02 Long term (current) use of antithrombotics/antiplatelets
CPT/HCPCS: 70450; 80048; 82550; 83735; 84484; 85025; 85610; 85730; 93005; 96361; 96374; 99285; J1885; J7030